=== PATIENT | male | born 1935 | race Caucasian/White ===

== ENCOUNTER → 2016-08-08 | Outpatient (CLI) | payer OTHER, MEDICARE ==
[~2016-08-08] MED LIST: IOPAMIDOL (ISOVUE 370) 100 ML BTL IV ONE
== END ==
LOC: FIMAGING 16:51
PROVIDERS: ATTEND Internal Medicine Critical Care Medicine
DX: J81.1 Chronic pulmonary edema (principal)
CPT/HCPCS: 71275; Q9967

== ENCOUNTER → 2018-01-15 | Outpatient (CLI) | payer OTHER, MEDICARE | LOC: FIMAGING 16:26 | PROVIDERS: ATTEND Physician Assistant | DX: S22.080D Wedge compression fracture of T11-T12 vertebra, subsequent encounter for fracture with routine healing (principal); M40.205 Unspecified kyphosis, thoracolumbar region; M53.86 Other specified dorsopathies, lumbar region ==

== ENCOUNTER 2018-01-22 06:01 | Inpatient (IN) | payer OTHER, MEDICARE ==
[2018-01-22] MEDS ORDERED: LIDOCAINE 1% 2 ML INJ ID PRN (06:18)
[2018-01-22] MEDS ORDERED: LR 1,000 ML IV ONE (06:18)
[2018-01-22] MEDS ORDERED: SURGIFLO MATRIX KIT WITH THROMBIN 8 ML TP ONE (06:19)
[2018-01-22] MEDS ORDERED: VANCOMYCIN 1 GM VIAL ONE (06:19)
[2018-01-22] MEDS ORDERED: BACITRACIN 50,000 UNITS/10 ML SYR IRR ONE (06:20)
[2018-01-22] MEDS ORDERED: TRANEXAMIC ACID 1,000 MG in NS 100 ML IV ONE (06:53)
[2018-01-22] MEDS ORDERED: ceFAZolin 2 GM/DEXTROSE 100 ML IV ONE (06:53)
--- NOTE | 2018-01-22 06:55 | PDHPUP ---
History & Physical Update H&P update statement: This history and physical update is based on an assessment of the patient which was completed after admission or registration (within 24 hours), but prior to the surgery/procedure. H&P update: H&P reviewed & patient examined, no change in patient's condition since H&P completed
[2018-01-22] MEDS ORDERED: fentaNYL 100 MCG/2 ML INJ ONE (07:13)
[2018-01-22] MEDS ORDERED: PROPOFOL/EMULSION 500 MG/50 ML BOTTLE IV ONE ×2 (07:13→08:37)
[2018-01-22] MEDS ORDERED: DEXAMETHASONE 4 MG/ML VIAL ONE (07:14)
[2018-01-22] MEDS ORDERED: KETOROLAC 30 MG/1 ML SDV ONE (07:14)
[2018-01-22] MEDS ORDERED: ROCURONIUM 50 MG/5 ML VIAL ONE (07:14)
[2018-01-22] MEDS ORDERED: ONDANSETRON 4 MG/2 ML VIAL ONE (07:14)
[2018-01-22] MEDS ORDERED: LIDOCAINE 2% 2 ML INJ ONE ×3 (07:14)
[2018-01-22] MEDS ORDERED: SUCCINYLCHOLINE CHLORIDE 200 MG/10 ML SYR IVP ONE (07:14)
--- NOTE | 2018-01-22 07:18 | PDANEPAE ---
ANE History of Present Illness natalee ANE Past Medical History - Cardiovascular History Hx Hypertension: Yes Hx Arrhythmias: Yes Hx Chest Pain: No Hx Coronary Artery / Peripheral Vascular Disease: No Hx CHF / Valvular Disease: No Hx Palpitations: Yes Cardiovascular History Comment: INTERMITTENT A-FIB 3 PREV CARDIOVERSIONS. NOW IN A-FIB FOR [address]JOHN LONDON. 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 NEG SLEEP STUDY - Neurologic History Hx Cerebrovascular Accident: No Hx Seizures: No Hx Dementia: No Neurologic History Comment: ddd. lumbar stenosis. right leg has tingling and numbness randomly - Endocrine History Hx Diabetes: No Hypothyroid: No Hyperthyroid: No Obesity: no - Renal History Hx Renal Disorders: No Renal History Comment: hx of kidney failure with amiodarone toxicity - Liver History Hx Hepatic Disorders: No - Neurological & Psychiatric Hx Hx Neurological and Psychiatric Disorders: No - Cancer History Hx Cancer: No Cancer History Comment: hx of basal cell - Congenital Disorder History Hx Congenital Disorders: No - GI History GERD: no Hx Gastrointestinal Disorders: No - Other Health History Other Health History: EPIDURAL 10/2015. DDD. LUMBAR STENOSIS - Chronic Pain History Chronic Pain: Yes (LUMBAR DOWN RT LEG) - Surgical History Prior Surgeries: RT CAROTID ENDARETERECTOMY 2013 IN [place]. LT. ANKLE FOR STAPH INFECTION. RT RING FINGER TENDON REATTACHMENT. CERVICAL FUSION C 4-6. TONSILLECTOMY ANE Review of Systems Review of Systems: - Exercise capacity Exercise capacity: <4 METS, limited by disability METS (RN): 3 METS ANE Patient History - Allergies Allergies/Adverse Reactions: amiodarone Allergy (Verified 01/16/18 15:30) Anaphylaxis - Home Medications Home Medications: Atorvastatin Calcium [Lipitor 40 mg (*)] 80 mg PO HS 01/16/18 [Last Taken 21:00] Latanoprost 0.005% [Xalatan 0.005% (*)] 1 drops EACHEYE HS 01/16/18 [Last Taken 01/21/18 21:00] Metoprolol Tartrate [Lopressor 50 mg (*)] 50 mg PO BID 01/16/18 [Last Taken 10/01 21:00] - NPO status NPO Since - Liquids (Date): 01/21/18 NPO Since - Liquids (Time): 19:30 NPO Since - Solids (Date): 01/21/18 NPO Since - Solids (Time): 19:30 - Anes Hx Anes Hx: no prior problems, post operative nausea and vomiting - Smoking Hx Smoking Status: Never smoked - Family Anes Hx Family Hx Anesthesia Complications: none ANE Labs/Vital Signs - Vital Signs Blood Pressure: 149/69 Heart Rate: 60 Respiratory Rate: 18 O2 Sat (%): 96 Height: 180.34 cm Weight: 72.575 kg ANE Physical Exam - Airway Mallampati Score: Class 2 Mouth exam: normal dental/mouth exam - Pulmonary Pulmonary: no respiratory distress - Cardiovascular Cardiovascular: irregularly irregular - ASA Status ASA Status: II ANE Anesthesia Plan Anesthesia Plan: general endotracheal anesthesia
[2018-01-22] MEDS ORDERED: PHENYLEPHRINE 10 MG/ML SDV ONE (08:17)
[2018-01-22] MEDS ORDERED: GLYCOPYRROLATE 0.2 MG/1 ML VIAL ONE ×4 (08:17→09:20)
[2018-01-22] MEDS ORDERED: *IRR*TRANEXAMIC ACID 3,000 MG/NS 50 ML IRR ONE (08:30)
[2018-01-22] MEDS ORDERED: ALBUMIN 5% 250 ML BOTTLE IV ONE ×2 (08:35→09:37)
[2018-01-22] MEDS: BUPIVACAINE/EPI 0.5% 30 ML SDV ONE ×2 (08:40→10:27)
[2018-01-22] MEDS ORDERED: THROMBIN (BOVINE) 20,000 UNIT SPRAY TP ONE (08:52)
[2018-01-22] MEDS ORDERED: ATROPINE SULFATE 1 MG/ML VIAL ONE ×2 (09:20→09:27)
[2018-01-22] MEDS ORDERED: EPINEPHrine 1 MG/ML INJ ONE (09:32)
[2018-01-22] MEDS ORDERED: ONDANSETRON 4 MG/2 ML VIAL IVP PRN ×2 (09:49→10:50)
[2018-01-22] MEDS ORDERED: PHENYLEPHRINE HCL 100 MCG/ML SYR IVP PRN (09:49)
[2018-01-22] MEDS ORDERED: ALBUTEROL 3 ML DEYVIAL IH PRN (09:49)
[2018-01-22] MEDS ORDERED: LR 500 ML IV PRN (09:49)
[2018-01-22] MEDS ORDERED: NALOXONE HCL 0.4 MG/ML INJ IVP PRN (09:49)
[2018-01-22] MEDS ORDERED: PROMETHAZINE HCL 25 MG/ML INJ IVP PRN (10:50)
[2018-01-22] MEDS ORDERED: ONDANSETRON DISINTEGRATING 4 MG TAB PO PRN (10:50)
[2018-01-22] MEDS ORDERED: LACTULOSE 20 GM/30 ML UDCUP PO PRN (10:50)
[2018-01-22] MEDS ORDERED: diphenhydrAMINE 25 MG CAP PO PRN (10:50)
[2018-01-22] MEDS ORDERED: HYDROmorphONE/DILAUDID 1 MG/ML INJ IVP PRN (10:50)
[2018-01-22] MEDS ORDERED: BISACODYL 10 MG SUPP PR PRN (10:50)
[2018-01-22] MEDS ORDERED: MAGNESIUM HYDROXIDE 30 ML UDCUP PO PRN (10:50)
[2018-01-22] MEDS ORDERED: POLYETHYLENE GLYCOL 3350 17 GM PKT PO PRN (10:50)
[2018-01-22] MEDS ORDERED: ZOLPIDEM TARTRATE 5 MG TAB PO PRN (10:50)
--- NOTE | 2018-01-22 10:50 | SUROPNOTE ---
JUAN F Operative Report - Surgery Date: 01/22/18 Pre-operative Diagnosis: Lumbar Spinal Stenosis Post-operative Diagnosis: Same Procedure: Open L1-5 Lumbar Laminectomy and Decompression Use of intra-operative fluoroscopy Use of a surgical microscope Surgeon: Abiel Wallace MD Military Technology Specialist: Kerry Holley Anesthesia: General endotracheal anesthesia Findings: As expected lumbar spinal stenosis Estimated Blood Loss: 1500mL Drains: Hemovac sewn to skin Specimens: None Complications: None Condition: Transferred to PACU in stable condition. Implants: None Indications: This patient was seen and examined by me and diagnosed with lumbar spinal stenosis. I have explained all options of treatment for the patient, and the patient has elected to proceed with operative management. I have explained all risks, benefits, and alternatives of the proposed procedure. The risks that we have discussed include , blindness, nerve damage, infection, dural tear, failure of surgery to alleviate pre-operative symptoms, and possible need for further operation. In addition to the aforementioned procedure, I discussed with the patient that other procedures may be indicated during the course of surgery that would be considered in the patients best interest. The patient expressed understanding of this. Pre-operative: The proposed incision site was marked in the pre-operative holding area by me. The patient was then taken to the operating room in stable condition. Following smooth induction of general anesthesia, the patient was positioned prone on a Samy table in mild reverse Trendelenburg with all down surfaces well-padded. The patient was then prepped and draped in the usual sterile fashion. Pre- operative antibiotics were administered within one hour of the incision. A surgical timeout was performed, and all parties involved in the procedure were in agreement on the correct patient, location, and procedure to be performed. Approach: The proposed levels were identified using C-arm fluoroscopy and the skin was marked for the proposed incision. The skin was then incised sharply through the dermis. Electrocautery was used to dissect the subdermal fat layer down to fascia and to coagulate bleeding vessels. Secondary pause: Two Colton clamps were then placed on the spinous processes at both ends of the dissection. A lateral radiograph to identify the associated anatomy, and a small piece of bone from the associated spinous processes was removed for identification. A secondary spinal pause was then performed, and the level was confirmed with all parties participating in the operation. These spinous processes were noted to be at L5 and L2 Decompression: All paraspinal muscles were dissected sub-periostally from the spinous processes and laminae. The dissection was then carried out to include the extent of decompression that was determined before surgery, with care being taken to preserve all facet capsules. The lateral pars was identified for all levels to be included in the proposed decompression. Using a combination of rongeur, zahida, and Kerrison rongeurs, the spinous processes and laminae were removed at all levels to the subarticular lateral recess. Care was taken to leave a minimum of 8mm of bone from the lateral border of the pars at each decompressed level. The ligamentum flavum was resected at all levels. Additional care was taken to adequately decompress the lateral recess at all levels. At the cephalad and caudal vertebrae of the extent of the decompression , approximately 50% of the lamina was removed; at the remaining levels, a complete laminectomy was performed. At this time, a ball probe was used to probe all foraminae at the affected levels. Where necessary, a small Kerrison rongeur was used to decompress remaining bone and soft tissue so that all nerve roots would traverse freely through the foraminae. In total, the entire laminae of L2-5 were removed, and the caudal half of L1 was removed. Hemostasis: Of note, the EBL was substantially higher (total was between 1L and 1.5L) than an expected procedure. The patient had extensive venous plexus bleeding from the epidural space, which despite our best efforts, continued to bleed continuously. Closure: The surgical field was then copiously irrigated with sterile saline. Vancomycin powder was then applied to the surgical field. A small drain was placed deep to the fascia and brought out of the skin superior and laterally. The drain was then sewn to skin. #1 braided and absorbable interrupted sutures were used to repair the fascia. Then 2-0 monofilament interrupted sutures were used to repair the dermal layer, and a separate 3-0 monofilament suture was used to repair the subcutaneous layer in a running fashion. All sutures used were absorbable. Topical adhesive was then applied to the skin and allowed to dry. A sterile island dressing was applied over the surgical incision. A surgical count was performed before initiation of closure and following the procedure, and all were correct. I was present for all critical portions of the procedure. Neuromonitoring: SSEP, MEP and EMG were used throughout the case from incision until the beginning of closure. There were no significant changes throughout the case, and SSEP signals were at their pre-surgical baseline levels before surgical closure was initiated. Surgical microscope use: A surgical microscope was utilized throughout the decompressive portion of this case. This was deemed necessary for safe and accurate surgical decompression of affected nerve roots. commercial lines account assistant: A surgical attendant was used throughout the case, and deemed necessary for safe neural retraction, hemostasis, and suction. Recovery: The patient was extubated uneventfully in the operating room. The patient was taken to the recovery room in stable condition. Sequential compression devices for VTE prophylaxis were applied to the patients lower extremities, and were ordered to be used while the patient was non-ambulatory. Chemical VTE prophylaxis was considered to be contraindicated for this patient because of the risk of bleeding near the epidural space. Ricco Wallace MD
[2018-01-22] MEDS ORDERED: HYDROmorphONE/DILAUDID 2 MG/ML INJ ONE (11:14)
[2018-01-22] MEDS: HYDROmorphONE/DILAUDID 2 MG/ML INJ IVP PRN ×3 (11:15→11:44)
[2018-01-22] MEDS: oxyCODONE IR 5 MG TAB PO PRN (12:31)
[2018-01-22] MEDS: METHOCARBAMOL 750 MG TAB PO PRN (12:31)
[2018-01-22] MEDS: GABAPENTIN 300 MG CAP PO SCH ×2 (16:03→22:14)
[2018-01-22] MEDS: ACETAMINOPHEN 500 MG TAB PO SCH ×2 (16:04→22:13)
[2018-01-22] MEDS: ceFAZolin 2 GM/DEXTROSE 100 ML IV SCH ×2 (16:10→23:20)
[2018-01-22] MEDS: NS 1,000 ML IV SCH (16:34)
[2018-01-22] MEDS: FAMOTIDINE 20 MG TAB PO SCH (17:15)
[2018-01-22] MEDS: METOPROLOL TARTRATE 50 MG TAB PO SCH (20:50)
[2018-01-22] MEDS: ATORVASTATIN CALCIUM 40 MG TAB PO SCH (20:51)
[2018-01-22] MEDS: SENNOSIDES/DOCUSATE SODIUM TAB PO SCH (20:53)
[2018-01-22] MEDS: LATANOPROST 0.005% 2.5 ML OPHT DROPS EACHEYE SCH (23:24)
[2018-01-23 05:38] LABS: PLATELET COUNT 82 10^3/uL (150-400)
[2018-01-23] MEDS: GABAPENTIN 300 MG CAP PO SCH ×3 (05:57→22:18)
[2018-01-23] MEDS: ACETAMINOPHEN 500 MG TAB PO SCH ×3 (05:59→22:19)
[2018-01-23] MEDS: METOPROLOL TARTRATE 50 MG TAB PO SCH ×2 (07:43→22:27)
[2018-01-23] MEDS: NS 1,000 ML IV SCH (07:46)
--- NOTE | 2018-01-23 08:57 | GPROG ---
DATE OF SERVICE: 01/23/2018 Patient is doing well this morning. He reports a little back pain which is appropriate but otherwise well controlled on oral medications. The patient has no gross sensorimotor or vascular deficits, an d the drain output has been minimal. Lab values include a hemoglobin which is 7.4 with hematocrit of 21.9, otherwise grossly unremarkable. IMPRESSION: Postoperative day 1 status post L1-L5 decompression. ASSESSMENT AND PLAN: I had a long discussion with the patient regarding his blood loss. He lost ove r a L and possibly a L and a half during the decompression. He does describe a history of increased bleeding during his operation, but was overall unremarkable with his parts counter clerk. With regard to hi s hemoglobin being below 8 as well as having a cardiac history, I did officially recommend that he re ceive 1 unit of packed red blood cells. His vitals are otherwise normal. His blood pressure is with in normal limits and his heart rate is also normal, so he is clearly not having any sort of increased demand. He also denies any chest pain or shortness of breath. Although my official medical advice is that the patient receive a transfusion, I think it is reasonable to watch and see how he does over the course of the day. We will see him tomorrow. We will trend his hemoglobin and make recommendat ions accordingly. Patient does understand that there is a cardiac risk to not receiving a transfusio n, but understands that I feel it is overall not unreasonable for him to do so, although it is offici ally against my medical recommendation. /[id number]/MODL
[2018-01-23] MEDS: FAMOTIDINE 20 MG TAB PO SCH ×2 (09:24→22:20)
[2018-01-23] MEDS: SENNOSIDES/DOCUSATE SODIUM TAB PO SCH ×2 (09:25→22:20)
--- NOTE | 2018-01-23 13:47 | ASMTCMCOM ---
CM Note CM Note Notes: Pt had planned lumbar spine surgery, resides with spouse. OT/PT rec home. Anticipate pt will d/c when medically stable, no CM d/c needs identified. CM available for changes/needs. Date Signed: 01/23/2018 01:46 PM Electronically Signed By:AMARA Bazzi
--- NOTE | 2018-01-23 16:21 | PDMN ---
Medical Necessity Medical necessity: Change to IP, as of 01/23/18, per MD; los >2 mn s/p L1/5 decompression (cpt 28539) POD #1; pt lost >1 liter of blood during surgery with current Hgb of 7.4 & Hct of 21.9; requiring further monitoring, follow-up labs & possible blood transfusion; comorbid advanced age, CAD, AFIB, HTN
[2018-01-23] MEDS: oxyCODONE IR 5 MG TAB PO PRN ×2 (18:12→22:31)
[2018-01-23] MEDS ORDERED: TAMSULOSIN HCL 0.4 MG CAP PO ONE (21:00)
[2018-01-23] MEDS: ATORVASTATIN CALCIUM 40 MG TAB PO SCH (22:19)
[2018-01-23] MEDS: LATANOPROST 0.005% 2.5 ML OPHT DROPS EACHEYE SCH (22:25)
[2018-01-24] MEDS: oxyCODONE IR 5 MG TAB PO PRN (03:17)
[2018-01-24] MEDS: METHOCARBAMOL 750 MG TAB PO PRN (03:18)
[2018-01-24] MEDS: GABAPENTIN 300 MG CAP PO SCH ×2 (05:45→14:11)
[2018-01-24] MEDS: ACETAMINOPHEN 500 MG TAB PO SCH ×2 (05:45→14:11)
[2018-01-24] MEDS: FAMOTIDINE 20 MG TAB PO SCH (10:02)
[2018-01-24] MEDS: SENNOSIDES/DOCUSATE SODIUM TAB PO SCH (10:02)
[2018-01-24] MEDS: METOPROLOL TARTRATE 50 MG TAB PO SCH (10:02)
[2018-01-24 11:53] VITALS: BP 114/65
--- NOTE | 2018-01-24 15:07 | ASMTLACE ---
LACE Length of stay for Answers: 2 days current admission Acuity / Level of Answers: Yes Care: Did the patient have an inpatient admission? Comorbidities - select Answers: Opioid dependence all that apply / Chronic pain Other Notes: HTN; AFib # of Emergency department Answers: 0 visits in the last 6 months Score: 10 Date Signed: 01/24/2018 03:06 PM Electronically Signed By:AMARA Bazzi
== END 2018-01-24 15:56 | disposition home or self-care (01) | DRG 909 ==
LOC: F3E 06:01 → INTOOBSV 06:01 → F3N 11:56 → OBSVTOIN 01-23 16:05
PROVIDERS: ADMIT Orthopaedic Surgery Orthopaedic Surgery of the Spine; ATTEND Orthopaedic Surgery Orthopaedic Surgery of the Spine
DX: M96.810 Intraoperative hemorrhage and hematoma of a musculoskeletal structure complicating a musculoskeletal system procedure (principal); M48.062 Spinal stenosis, lumbar region with neurogenic claudication; I10 Essential (primary) hypertension; I48.91 Unspecified atrial fibrillation; Z85.820 Personal history of malignant melanoma of skin; Z98.1 Arthrodesis status
CPT/HCPCS: 97116-GP; 97161-GP; 97165-GO; G8978-GP-CI; G8979-GP-CI; G8980-GP-CI; G8987-GO-CI; G8988-GO-CH; G8989-GO-CI; J0171; J0330; J0461; J0690; J1100; J1170; J1885; J2370; J2405; J2704; J3010; J3370; P9041

== ENCOUNTER → 2018-04-30 | Outpatient (CLI) | payer OTHER, MEDICARE | LOC: BMCIMAGING 10:08 | PROVIDERS: ATTEND Internal Medicine | DX: N64.4 Mastodynia (principal) ==

== ENCOUNTER → 2018-06-17 | Outpatient (CLI) | payer OTHER, MEDICARE | LOC: BMCIMAGING 13:40 | PROVIDERS: ATTEND Orthopaedic Surgery Hand Surgery | DX: M19.011 Primary osteoarthritis, right shoulder (principal); M19.012 Primary osteoarthritis, left shoulder ==